=== PATIENT | male | born 1955 | race Caucasian/White ===

== ENCOUNTER → 2017-06-24 | Outpatient (CLI) | payer BC ==
--- NOTE | 2017-06-24 08:45 | DIAGNOSTIC IMAGING REPORT ---
CT LUNG SCREENING, LOW DOSE WITH COMPUTER-AIDED DETECTION (CAD) CLINICAL HISTORY: Smoking history. COMPARISON STUDY: No previous studies for comparison. CT DOSE: 89.01 mGy.cm TECHNIQUE: Low-dose helical CT was acquired without intravenous contrast from lung apices to bases and reconstructed at 2.5 mm every 2 mm. CAD was utilized for this study. A dose lowering technique was utilized adhering to the principles of ALARA. FINDINGS: Mild emphysema. No pleural effusions. No pneumothorax. The central airways are patent. No focal lung consolidations to suggest pneumonia. No suspicious lytic or blastic osseous lesions. The visualized liver, spleen, and adrenal glands are unremarkable. The heart is normal in size. No mediastinal or hilar lymphadenopathy. Normal caliber thoracic aorta. Mild calcified plaque within the left coronary arteries. A subcentimeter indeterminate pulmonary nodule within the lingula on image 91 as described below. A subcentimeter subpleural nodule within the right lower lobe on image 100 as described below. Nodule 1 Category: 2 Nodule 1 Status: Baseline Nodule 1 Description: Solid Nodule 1 Lesion ID: 2 Nodule 1 Slice Number: 57 Nodule 1 Volume (mm3): 46 Nodule 1 Major Reserve mm: 5.5 Nodule 1 Minor Reserve mm: 2.4 Nodule 2 Category: 2 Nodule 2 Status: Baseline Nodule 2 Description: Solid Nodule 2 Lesion ID: 1 Nodule 2 Slice Number: 66 Nodule 2 Volume (mm3): 11 Nodule 2 Major Reserve mm: 3.1 Nodule 2 Minor Reserve mm: 3.1 IMPRESSION: 1. Mild emphysema. 2. Mild calcified plaque within the left coronary arteries. 3. There are total of 2 subcentimeter indeterminate pulmonary nodules with recommendations detailed below. CAD FINDINGS: Overall Lung RADS Category: 2 Lung RADS Management Recommendation: Lung-RADS 2: Continue annual screening in 12 months. Lung RADS Follow Up Date: 2018-06-24 Lung RADS Nodule ID: 2 Electronically signed by: Kota Terry M.D. 06/24/2017 8:43 AM Dictated Date/Time: 06/24/2017 8:34 AM
== END | disposition home or self-care (01) ==
LOC: C.CTS 08:17
PROVIDERS: ATTEND Student in an Organized Health Care Education/Training Program
DX: Z12.2 Encounter for screening for malignant neoplasm of respiratory organs (principal); Z87.891 Personal history of nicotine dependence; J43.9 Emphysema, unspecified; I25.10 Atherosclerotic heart disease of native coronary artery without angina pectoris; R91.8 Other nonspecific abnormal finding of lung field